=== PATIENT | female | born 1940 | race Caucasian/White ===

== ENCOUNTER 2020-12-02 16:31 | Inpatient (IN) | payer MEDICARE ==
--- NOTE | 2020-12-02 17:15 | ED ---
General Adult HPI - General Chief complaint: Shortness of Breath Stated complaint: SOB Time Seen by Provider: 12/02/20 16:36 Source: patient, EMS, RN notes reviewed, old records reviewed Mode of arrival: EMS Limitations: no limitations - History of Present Illness Initial comments: 80-year-old female presented for evaluation of dyspnea and cough. History of COPD on oxygen at home. She's had multiple recent admissions at outside hospital with COPD exacerbation as well as atrial fibrillation. She states she's had some low-grade fevers, cough which is nonproductive. She denies abdominal pain but has had some nausea. No central chest pain. Patient was given Solu-Medrol, albuterol, Atrovent by EMS prior to arrival. - Related Data Home Medications Medication Instructions Recorded Confirmed ARIPiprazole [Abilify] 5 mg PO DAILY 12/02/20 12/02/20 Apixaban [Eliquis] 2.5 mg PO BID 12/02/20 12/02/20 Benazepril HCl [Lotensin] 20 mg PO DAILY 12/02/20 12/02/20 Cefuroxime Axetil [Ceftin] 500 mg PO BID 12/02/20 12/02/20 Diltiazem Oral [Cardizem Oral] 30 mg PO BID 12/02/20 12/02/20 Fluticasone Propion/Salmeterol 1 puff INHALATION RT-BID 12/02/20 12/02/20 [Wixela 500-50 Inhub] LORazepam [Ativan] 0.5 mg PO BID PRN 12/02/20 12/02/20 LORazepam [Ativan] 0.5 mg PO HS 12/02/20 12/02/20 Propranolol HCl [Inderal LA] 120 mg PO BID 12/02/20 12/02/20 Sertraline HCl [Zoloft] 150 mg PO DAILY 12/02/20 12/02/20 Simvastatin [Zocor] 20 mg PO HS 12/02/20 12/02/20 hydrALAZINE HCL 50 mg PO BID 12/02/20 12/02/20 hydroCHLOROthiazide 25 mg PO DAILY 12/02/20 12/02/20 Allergies Allergy/AdvReac Type Severity Reaction Status Date / Time No Known Allergies Allergy Unverified 12/02/20 17:59 Review of Systems ROS Statement: Those systems with pertinent positive or pertinent negative responses have been documented in the HPI. ROS Other: All systems not noted in ROS Statement are negative. Past Medical History Past Medical History: Atrial Fibrillation, COPD, Hypertension History of Any Multi-Drug Resistant Organisms: Unobtainable Past Surgical History: Orthopedic Surgery Additional Past Surgical History / Comment(s): left kindey, adrenal gland, lumpectomy left breast, catracts. Past Psychological History: No Psychological Hx Reported Smoking Status: Former smoker Past Alcohol Use History: None Reported Past Drug Use History: None Reported General Exam Limitations: no limitations General appearance: alert, in no apparent distress Head exam: Present: atraumatic, normocephalic Eye exam: Present: normal appearance, PERRL ENT exam: Present: normal exam Neck exam: Present: normal inspection. Absent: tenderness Respiratory exam: Present: respiratory distress, wheezes, rales, decreased breath sounds Cardiovascular Exam: Present: regular rate, irregular rhythm GI/Abdominal exam: Present: soft. Absent: distended, tenderness, guarding, rebound Extremities exam: Present: normal inspection, normal capillary refill. Absent: pedal edema, calf tenderness Neurological exam: Present: alert, oriented X3, CN II-XII intact. Absent: motor sensory deficit Psychiatric exam: Present: normal affect, normal mood Skin exam: Present: warm, dry, intact. Absent: cyanosis, diaphoretic Course Vital Signs 12/02/20 12/02/20 16:33 18:07 Temperature 98.4 F Pulse Rate 87 89 Respiratory 18 18 Rate Blood Pressure 87/58 93/62 O2 Sat by Pulse 96 95 Oximetry EKG Findings - EKG Comments: EKG Findings:: Atrial fibrillation, rate of 83 low voltage QRS, rate of 83, QRS duration 70, QTC 397, no ST segment elevation. Medical Decision Making - Medical Decision Making 80-year-old female presenting with cough and dyspnea. History of COPD, oxygen dependent. Chest x-ray showed bilateral effusion, concern for infiltrate. The patient does have a leukocytosis which may be secondary infection or recent steroid administration. She had a given steroids by EMS prior to arrival. She is given IV antibiotics in the emergency department for possible concurrent pneumonia. She has a stable hemoglobin. Normal light was, normal kidney function. She has a mild elevated BNP of 5000. Coronavirus is negative. I did discuss case with Dr. Gibson who will admit. Pulmonology placed on consult. - Lab Data Result diagrams: 12/02/20 17:21 12/02/20 17:21 Lab Results 12/02/20 12/02/20 12/02/20 Range/Units 17:21 17:21 17:21 WBC 18.0 H (3.8-10.6) k/uL RBC 4.04 (3.80-5.40) m/uL Hgb 13.0 (11.4-16.0) gm/dL Hct 40.1 (34.0-46.0) % MCV 99.3 (80.0-100.0) fL MCH 32.2 (25.0-35.0) pg MCHC 32.4 (31.0-37.0) g/dL RDW 14.6 (11.5-15.5) % Plt Count 375 (150-450) k/uL MPV 7.9 Neutrophils % 93 % Lymphocytes % 1 % Monocytes % 2 % Eosinophils % 3 % Basophils % 0 % Neutrophils # 16.8 H (1.3-7.7) k/uL Lymphocytes # 0.2 L (1.0-4.8) k/uL Monocytes # 0.3 (0-1.0) k/uL Eosinophils # 0.6 (0-0.7) k/uL Basophils # 0.1 (0-0.2) k/uL Macrocytosis Slight PT 11.3 (9.0-12.0) sec INR 1.1 (<1.2) APTT 24.0 (22.0-30.0) sec Sodium 136 L (137-145) mmol/L Potassium 3.7 (3.5-5.1) mmol/L Chloride 102 (98-107) mmol/L Carbon Dioxide 25 (22-30) mmol/L Anion Gap 9 mmol/L BUN 25 H (7-17) mg/dL Creatinine 0.80 (0.52-1.04) mg/dL Est GFR (CKD-EPI)AfAm 82 (>60 ml/min/1.73 sqM) Est GFR (CKD-EPI)NonAf 71 (>60 ml/min/1.73 sqM) Glucose 83 (74-99) mg/dL Plasma Lactic Acid Federico (0.7-2.0) mmol/L Calcium 11.2 H (8.4-10.2) mg/dL Magnesium 1.7 (1.6-2.3) mg/dL Total Bilirubin 1.1 (0.2-1.3) mg/dL AST 44 H (14-36) U/L ALT 71 H (4-34) U/L Alkaline Phosphatase 187 H (38-126) U/L Troponin I (0.000-0.034) ng/mL NT-Pro-B Natriuret Pep pg/mL Total Protein 5.7 L (6.3-8.2) g/dL Albumin 3.1 L (3.5-5.0) g/dL Coronavirus (PCR) (Not Detectd) 12/02/20 12/02/20 12/02/20 Range/Units 17:21 17:21 17:21 WBC (3.8-10.6) k/uL RBC (3.80-5.40) m/uL Hgb (11.4-16.0) gm/dL Hct (34.0-46.0) % MCV (80.0-100.0) fL MCH (25.0-35.0) pg MCHC (31.0-37.0) g/dL RDW (11.5-15.5) % Plt Count (150-450) k/uL MPV Neutrophils % % Lymphocytes % % Monocytes % % Eosinophils % % Basophils % % Neutrophils # (1.3-7.7) k/uL Lymphocytes # (1.0-4.8) k/uL Monocytes # (0-1.0) k/uL Eosinophils # (0-0.7) k/uL Basophils # (0-0.2) k/uL Macrocytosis PT (9.0-12.0) sec INR (<1.2) APTT (22.0-30.0) sec Sodium (137-145) mmol/L Potassium (3.5-5.1) mmol/L Chloride (98-107) mmol/L Carbon Dioxide (22-30) mmol/L Anion Gap mmol/L BUN (7-17) mg/dL Creatinine (0.52-1.04) mg/dL Est GFR (CKD-EPI)AfAm (>60 ml/min/1.73 sqM) Est GFR (CKD-EPI)NonAf (>60 ml/min/1.73 sqM) Glucose (74-99) mg/dL Plasma Lactic Acid Federico 1.1 (0.7-2.0) mmol/L Calcium (8.4-10.2) mg/dL Magnesium (1.6-2.3) mg/dL Total Bilirubin (0.2-1.3) mg/dL AST (14-36) U/L ALT (4-34) U/L Alkaline Phosphatase (38-126) U/L Troponin I <0.012 (0.000-0.034) ng/mL NT-Pro-B Natriuret Pep 5170 pg/mL Total Protein (6.3-8.2) g/dL Albumin (3.5-5.0) g/dL Coronavirus (PCR) (Not Detectd) 12/02/20 Range/Units 17:53 WBC (3.8-10.6) k/uL RBC (3.80-5.40) m/uL Hgb (11.4-16.0) gm/dL Hct (34.0-46.0) % MCV (80.0-100.0) fL MCH (25.0-35.0) pg MCHC (31.0-37.0) g/dL RDW (11.5-15.5) % Plt Count (150-450) k/uL MPV Neutrophils % % Lymphocytes % % Monocytes % % Eosinophils % % Basophils % % Neutrophils # (1.3-7.7) k/uL Lymphocytes # (1.0-4.8) k/uL Monocytes # (0-1.0) k/uL Eosinophils # (0-0.7) k/uL Basophils # (0-0.2) k/uL Macrocytosis PT (9.0-12.0) sec INR (<1.2) APTT (22.0-30.0) sec Sodium (137-145) mmol/L Potassium (3.5-5.1) mmol/L Chloride (98-107) mmol/L Carbon Dioxide (22-30) mmol/L Anion Gap mmol/L BUN (7-17) mg/dL Creatinine (0.52-1.04) mg/dL Est GFR (CKD-EPI)AfAm (>60 ml/min/1.73 sqM) Est GFR (CKD-EPI)NonAf (>60 ml/min/1.73 sqM) Glucose (74-99) mg/dL Plasma Lactic Acid Federico (0.7-2.0) mmol/L Calcium (8.4-10.2) mg/dL Magnesium (1.6-2.3) mg/dL Total Bilirubin (0.2-1.3) mg/dL AST (14-36) U/L ALT (4-34) U/L Alkaline Phosphatase (38-126) U/L Troponin I (0.000-0.034) ng/mL NT-Pro-B Natriuret Pep pg/mL Total Protein (6.3-8.2) g/dL Albumin (3.5-5.0) g/dL Coronavirus (PCR) Not Detected (Not Detectd) Disposition Clinical Impression: Acute exacerbation of chronic obstructive pulmonary disease, Pneumonia Disposition: ADMITTED IP TO THIS [facility] Condition: Stable Is patient prescribed a controlled substance at d/c from ED?: No Referrals: Keltno Palma MD [Primary Care Provider] - 1-2 days Decision to Admit Reason: Admit from EC Decision Date: 12/02/20 Decision Time: 19:05
[2020-12-02 17:35] LABS: Basophils # (A) 0.1 k/uL (0-0.2); Basophils % (A) 0 %; Eosinophils # (A) 0.6 k/uL (0-0.7); Eosinophils % (A) 3 %; HCT 40.1 % (34.0-46.0); Lymphocytes # (A) 0.2 k/uL (1.0-4.8); Lymphocytes % (A) 1 %; MCH 32.2 pg (25.0-35.0); MCHC 32.4 g/dL (31.0-37.0); MCV 99.3 fL (80.0-100.0); Macrocytosis Slight; Mean Platelet Volume 7.9; Monocytes # (A) 0.3 k/uL (0-1.0); Monocytes % (A) 2 %; Neutrophils # (A) 16.8 k/uL (1.3-7.7); Neutrophils % (A) 93 %; Platelet Count 375 k/uL (150-450); RBC 4.04 m/uL (3.80-5.40); RDW 14.6 % (11.5-15.5)
[2020-12-02 17:43] LABS: INR 1.1 (<1.2); Prothrombin Time 11.3 sec (9.0-12.0)
[2020-12-02 17:46] LABS: Albumin 3.1 g/dL (3.5-5.0); Calcium 11.2 mg/dL (8.4-10.2); Magnesium 1.7 mg/dL (1.6-2.3); Potassium 3.7 mmol/L (3.5-5.1); Total Bilirubin 1.1 mg/dL (0.2-1.3); Total Protein 5.7 g/dL (6.3-8.2)
--- NOTE | 2020-12-02 18:42 | XR ---
EXAMINATION TYPE: XR chest 2V DATE OF EXAM: 12/02/2020 COMPARISON: 01/13/2019. HISTORY: Shortness of breath. TECHNIQUE: Frontal and lateral views of the chest are obtained. FINDINGS: There are moderate bibasilar streaky opacities with small pleural effusions. There is sugg estion of mild interstitial edema. No pneumothorax seen. Recommend of the. The osseous structures a re intact. IMPRESSION: Bibasilar opacities with small pleural effusions, probably atelectasis. Infiltrate is no t excluded.
[2020-12-02] MEDS ORDERED: IPRATROPIUM-ALBUTEROL 3 ML NEB INHALATION PRN (19:01)
[2020-12-02] MEDS ORDERED: AZITHROMYCIN 500 MG in SODIUM CHLORIDE 0.9% 250 ML IVPB STA (19:02)
[2020-12-02] MEDS ORDERED: cefTRIAXone IN SWFI 1,000 MG/10 ML SYRINGE IVP STA (19:02)
[2020-12-02] MEDS: IPRATROPIUM-ALBUTEROL 3 ML NEB INHALATION SCH (19:51)
[2020-12-02] MEDS ORDERED: LORazepam 0.5 MG TAB PO PRN (22:25)
[2020-12-02] MEDS: LORazepam 0.5 MG TAB PO SCH (23:06)
[2020-12-02] MEDS: DILTIAZEM ORAL 30 MG TAB PO SCH (23:07)
[2020-12-02] MEDS: APIXABAN 2.5 MG TABLET PO SCH (23:09)
[2020-12-02] MEDS: methylPREDNISolone SOD SUCCI 125 MG/2 ML VIAL IV SCH (23:36)
[2020-12-03] MEDS: methylPREDNISolone SOD SUCCI 125 MG/2 ML VIAL IV SCH ×2 (05:30→11:16)
[2020-12-03] MEDS: IPRATROPIUM-ALBUTEROL 3 ML NEB INHALATION SCH ×5 (07:47→19:42)
[2020-12-03] MEDS ORDERED: FLUTICASONE PROPION INHALATION SCH (08:00)
[2020-12-03] MEDS ORDERED: SALMETEROL INHALATION SCH (08:00)
[2020-12-03] MEDS: ARIPiprazole 5 MG TAB PO SCH (08:36)
[2020-12-03] MEDS: hydrALAZINE HCL 50 MG TAB PO SCH ×2 (08:36→21:16)
[2020-12-03] MEDS: DILTIAZEM ORAL 30 MG TAB PO SCH ×2 (08:36→21:16)
[2020-12-03] MEDS: APIXABAN 2.5 MG TABLET PO SCH ×2 (08:36→21:16)
[2020-12-03] MEDS: PROPRANOLOL LA 60 MG CAP.SA.24H PO SCH ×2 (08:36→21:16)
[2020-12-03] MEDS: CEFDINIR 300 MG CAP PO SCH ×2 (08:36→21:16)
[2020-12-03] MEDS: SERTRALINE 100 MG TAB PO SCH (08:36)
[2020-12-03] MEDS: lisinopriL 20 MG TAB PO SCH (08:37)
[2020-12-03] MEDS ORDERED: hydroCHLOROthiazide 25 MG TAB PO SCH (09:00)
[2020-12-03] MEDS ORDERED: BUDESONIDE 1 MG/2 ML NEBU INHALATION SCH (11:51)
[2020-12-03] MEDS: guaiFENesin 600 MG TABLET.ER PO SCH ×3 (12:38→21:16)
--- NOTE | 2020-12-03 14:48 | P.CNPUL ---
History of Present Illness Consult date: 12/03/20 Requesting physician: Kain Gibson Reason for consult: dyspnea, COPD, hypoxemia, other Chief complaint: Shortness of breath, nausea, vomiting. History of present illness: This is a 80-year-old female with history of COPD from previous heavy tobacco use, who sees Dr. May Marie is a primary. She also sees my partner, for her COPD. The patient has been recently admitted to [facility] twice, in the last couple weeks. On the first admission, she came in with COPD exacerbation, CHF, atrial fibrillation with RVR, and a urinary tract infection secondary to E. coli. On a subsequent admission, she came in again with shortness of breath, thought to be mostly related to underlying COPD. She does have chronic hypoxemic respiratory failure, and uses home O2 between 3-4 L/m, 2 01/15. On the ER ant here, he states that the reason she came in was for shortness of breath although when we are in the room seeing her, she states that her bigger problem was nausea, vomiting, and vomiting up bile. She denied any chest pain or chest discomfort. There is no fever or chills. She wasn't complaining of any genitourinary issues. Also, there are no GI issues other than what I mentioned above. I did ask the nurse taking care of her order an ultrasound of the abdomen with special attention to the right upper quadrant. The patient clinically looks about the same as she did when she was at the other hospitals. I believe she's pretty much at her baseline. She does have a hist ory of COPD, hyperlipidemia, hypertension, recent episode of atrial fibrillation, E. coli urinary tract infection, and left hypernephroma, status post left nephrectomy, adrenalectomy, and splenectomy. The patient also has a prior history of breast cancer, and had a left breast lumpectomy. Finally, she does have a history of cataracts. Review of Systems REVIEW OF SYSTEMS: CONSTITUTIONAL: Weakness, with chills and shakes. NEUROLOGIC: [ Negative.] HEENT: [ Negative.] CARDIAC: [Negative.] PULMONARY: Chronic shortness of breath. GI: Nausea, and biliary emesis : [Negative.] RHEUMATOLOGIC: [ Negative.] IMMUNOLOGIC: [ Negative.] ENDOCRINE: [Negative. ] DERMATOLOGIC: [Negative.] Past Medical History Past Medical History: Atrial Fibrillation, COPD, Hypertension History of Any Multi-Drug Resistant Organisms: Unobtainable Past Surgical History: Orthopedic Surgery Additional Past Surgical History / Comment(s): left kindey, adrenal gland, lumpe ctomy left breast, catracts. Past Psychological History: No Psychological Hx Reported Smoking Status: Former smoker Past Alcohol Use History: Daily Past Drug Use History: None Reported Medications and Allergies Home Medications Medication Instructions Recorded Confirmed Type ARIPiprazole [Abilify] 5 mg PO DAILY 12/02/20 12/02/20 History Apixaban [Eliquis] 2.5 mg PO BID 12/02/20 12/02/20 History Benazepril HCl [Lotensin] 20 mg PO DAILY 12/02/20 12/02/20 History Cefuroxime Axetil [Ceftin] 500 mg PO BID 12/02/20 12/02/20 History Diltiazem Oral [Cardizem Oral] 30 mg PO BID 12/02/20 12/02/20 History Fluticasone Propion/Salmeterol 1 puff INHALATION RT-BID 12/02/20 12/02/20 History [Wixela 500-50 Inhub] LORazepam [Ativan] 0.5 mg PO BID PRN 12/02/20 12/02/20 History LORazepam [Ativan] 0.5 mg PO HS 12/02/20 12/02/20 History Propranolol HCl [Inderal LA] 120 mg PO BID 12/02/20 12/02/20 History Sertraline HCl [Zoloft] 150 mg PO DAILY 12/02/20 12/02/20 History Simvastatin [Zocor] 20 mg PO HS 12/02/20 12/02/20 History hydrALAZINE HCL 50 mg PO BID 12/02/20 12/02/20 History hydroCHLOROthiazide 25 mg PO DAILY 12/02/20 12/02/20 History Allergies Allergy/AdvReac Type Severity Reaction Status Date / Time No Known Allergies Allergy Unverified 12/02/20 17:59 Physical Exam Osteopathic Statement: *. No significant issues noted on an osteopathic structural exam other than those noted in the History and Physical/Consult. Vitals: Vital Signs Temp Pulse Pulse Resp BP BP Pulse Ox 12/03/20 11:23 80 12/03/20 11:13 77 12/03/20 08:00 85 12/03/20 07:48 83 98 12/03/20 07:45 98.1 F 85 14 144/93 98 12/03/20 02:39 97.5 F L 72 137/87 96 12/02/20 22:09 97.9 F 77 18 118/78 97 12/02/20 19:58 99 12/02/20 19:51 82 12/02/20 19:49 85 18 127/84 96 12/02/20 18:07 89 18 93/62 95 12/02/20 16:33 98.4 F 87 18 87/58 96 Intake and Output 12/02/20 12/03/20 12/03/20 22:59 06:59 14:59 Output Total 620 Balance -620 Output: Urine 620 Other: # Voids 1 Weight 86.183 kg 86.183 kg No acute distress, oriented 3. No respiratory distress, audible wheezing, use of accessory muscles, or conversational dyspnea. HEENT examination is grossly unremarkable. Mucous membranes are moist. No oral lesions. Nasal O2 in place. Neck supple. Full range of motion. No adenopathy thyromegaly or neck vein distention. Cardiovascular examination reveals irregular rhythm and rate. S1-S2 normal. No S3 or S4. A soft systolic murmur is noted. Heart rate 80 bpm. Lungs reveal mostly clear breath sounds. Her sounds are equal bilaterally. Minimal crackles at the bases. No rhonchi or wheezes. Breath sounds are diminished throughout. Abdomen soft bowel sounds are heard. No masses or tenderness. Extremities are intact. No cyanosis clubbing or edema. Skin is without rash or lesion. Neurologic examination is brief but nonfocal. Results - Laboratory Findings CBC and BMP: 12/02/20 17:21 12/02/20 17:21 PT/INR, D-dimer PT 11.3 sec (9.0-12.0) 12/02/20 17:21 INR 1.1 (<1.2) 12/02/20 17:21 Abnormal lab findings: Abnormal Labs 12/02/20 12/02/20 17:21 17:21 WBC 18.0 H Neutrophils # 16.8 H Lymphocytes # 0.2 L Sodium 136 L BUN 25 H Calcium 11.2 H AST 44 H ALT 71 H Alkaline Phosphatase 187 H Total Protein 5.7 L Albumin 3.1 L - Diagnostic Findings Chest x-ray: image reviewed Assessment and Plan Assessment: Chronic shortness of breath, pretty much at baseline, likely related to underlying COPD, and mild fluid overload. Recent admissions 2 at [facility], for COPD exacerbation, CHF exacerbation, atrial fibrillation with RVR, and E. coli urinary tract infection. Chronic hypoxemic respiratory failure, currently on home O2 at 3 L/m, 24/7. Previous history of heavy tobacco use. History of breast cancer, status post left lumpectomy. Hypernephroma, left kidney, status post left nephrectomy, left adrenalectomy, an d splenectomy. History of hypertension. History of hyperlipidemia. Nausea, with biliary emesis, rule out gallbladder disease. Plan: Plan dated 12/03/2020. The patient will get an ultrasound of the abdomen with special attention to the right upper quadrant. The patient should have urine analysis with culture and sensitivity. In addition, we'll make sure the patient's on her appropriate breathing medications. White count is 18, hemoglobin 13, hematocrit 40.1, plat elet count 375,000, with a normal PT INR and PTT. Sodium 136, potassium 3.7, chlorides 102, CO2 25, anion gap is 9, BUN 25, and creatinine 0.80. Calcium is 11.2, AST 44, ALT 71, N-terminal proBNP 5170, and troponin is negative. coronavirus testing is negative. The patient will be placed on Symbicort, 160/4.5, 2 puffs twice a day, and we will DC Solu-Medrol in favor prednisone, 20 mg a day. The patient's currently on antibiotics. Additional recommendations and suggestions are forthcoming. I will order a pro-calcitonin level, and an ultrasound of the right upper quadrant. Time with Patient: Greater than 30
--- NOTE | 2020-12-03 15:57 | US ---
EXAMINATION TYPE: US abdomen limited DATE OF EXAM: 12/03/2020 COMPARISON: NONE CLINICAL HISTORY: Focus RUQ, R/O gallbladder disease . Difficult and limited exam due to patient body habitus EXAM MEASUREMENTS: Liver Length: 13.8 cm Gallbladder Wall: 0.2 cm CBD: 0.4 cm Right Kidney: 9.5 x 5.7 x 5.2 cm Pancreas: Obscured by bowel gas Liver: Heterogenous Gallbladder: No stones visualized. Appears slightly distended Evidence for sonographic Hendricks's sign: No CBD: wnl Right Kidney: No hydronephrosis. Possible tiny cyst visualized measuring 0.5 cm Visualized pancreas unremarkable. Visualized liver shows slight heterogeneity without worrisome mass or ductal dilatation. Gallbladder seen without shadowing mobile gallstones. No biliary dilatation. No right-sided hydronephrosis. IMPRESSION: No gallstones or ultrasound evidence for acute cholecystitis
[2020-12-03] MEDS ORDERED: methylPREDNISolone SOD SUCCI 40 MG/ML 1 ML VIAL IV SCH (16:00)
[2020-12-03] MEDS: SYMBICORT 160-4.5 MCG INHALER INHALATION SCH (19:41)
--- NOTE | 2020-12-03 20:32 | P.HPIM ---
History of Present Illness H&P Date: 12/03/20 Chief Complaint: Shortness of breath History of presenting complaint: This is a pleasant 80-year-old patient follows with Dr. Palma. Chronic stable medical conditions include hypertension, atrial fibrillation, anxiety, hypercholesterolemia essential hypertension. Patient on home oxygen 3 L. Patient for about 2 weeks of gradually becoming more and more short of breath. She had presented to [facility] at least couple of times. First occasion she was discovered to have atrial fibrillation. Also COPD has been playing a. Patient also got a cough with yellow sputum. Some fever. Appetite had dental. Wheezing. Patient's heart of hearing. Review of systems: GEN.: Tired EYES: None HEENT: Hard of hearing NECK: None RESPIRATORY: As above CARDIOVASCULAR: None GASTROINTESTINAL: None GENITOURINARY: None MUSCULOSKELETAL: Joint pains LYMPHATICS: None HEMATOLOGICAL: None PSYCHIATRY: None NEUROLOGICAL: Does use a walker Past medical history to include: COPD, home oxygen 3 dose, hyperlipidemia, depression, anxiety, essential hypertension Social history: Lives with her adult son. Does use a walker. Patient ex-smoker Physical examination: VITAL SIGNS: 98.4, 97, 18, 93/62, 96% on 3 L GENERAL: BMI 42.6, reclining on a recliner tired. EYES: Pupils equal. Conjunctiva normal. HEENT: External appearance of nose and ears normal, oral cavity grossly normal. Heart of hearing NECK: JVD not raised; masses not palpable. HEART: First and second heart sounds are normal; no edema. LUNGS:[ Respiratory rate increased, decreased breath sounds prolonged expi ration. ABDOMEN: Soft, nontender, liver spleen not palpable, no masses palpable. 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 NEUROLOGICAL: Cranial nerves grossly intact; no facial asymmetry, power and sensation grossly intact. LYMPHATICS: No lymph nodes palpable in the axilla and neck INVESTIGATIONS, reviewed in the clinical context: White count 18 hemoglobin 13 platelets 375 potassium 3.7 creatinine 0.8 AST 44 ALT 71 proBNP 5170 Coronavirus [PCR]-not detected EKG tracing personally reviewed by me-atrial fibrillation rate of 83 Chest x-ray film personally reviewed by me-right basilar infiltrate Assessment and plan: -Acute COPD exacerbation in an ex-smoker. Patient is placed on DuoNeb, steroid, Symbicort. Pulmonary consulted -Right lower lobe pneumonia, will be started antibiotics -Essential hypertension, patient continued on Cardizem, hydralazine, Zestril, Inderal LA -Persistent atrial fibrillation, heart rate controlled with Cardizem and Inderal LA. Also on eliquis -Anxiety depression on Zoloft -Possible acute CHF exacerbation. Give the patient IV Lasix every 12. 2 2-D echocardiogram the morning -Hard of hearing -Chronic hypoxic respiratory failure on home oxygen 3 L. Check pro-calcitonin and repeat BMP and BNP in the morning. Care was discussed with the patient. Past Medical History Past Medical History: Atrial Fibrillation, COPD, Hypertension History of Any Multi-Drug Resistant Organisms: Unobtainable Past Surgical History: Orthopedic Surgery Additional Past Surgical History / Comment(s): left kindey, adrenal gland, lumpectomy left breast, catracts. Past Psychological History: No Psychological Hx Reported Smoking Status: Former smoker Past Alcohol Use History: Daily Past Drug Use History: None Reported Medications and Allergies Home Medications Medication Instructions Recorded Confirmed Type ARIPiprazole [Abilify] 5 mg PO DAILY 12/02/20 12/02/20 History Apixaban [Eliquis] 2.5 mg PO BID 12/02/20 12/02/20 History Benazepril HCl [Lotensin] 20 mg PO DAILY 12/02/20 12/02/20 History Cefuroxime Axetil [Ceftin] 500 mg PO BID 12/02/20 12/02/20 History Diltiazem Oral [Cardizem Oral] 30 mg PO BID 12/02/20 12/02/20 History Fluticasone Propion/Salmeterol 1 puff INHALATION RT-BID 12/02/20 12/02/20 History [Wixela 500-50 Inhub] LORazepam [Ativan] 0.5 mg PO BID PRN 12/02/20 12/02/20 History LORazepam [Ativan] 0.5 mg PO HS 12/02/20 12/02/20 History Propranolol HCl [Inderal LA] 120 mg PO BID 12/02/20 12/02/20 History Sertraline HCl [Zoloft] 150 mg PO DAILY 12/02/20 12/02/20 History Simvastatin [Zocor] 20 mg PO HS 12/02/20 12/02/20 History hydrALAZINE HCL 50 mg PO BID 12/02/20 12/02/20 History hydroCHLOROthiazide 25 mg PO DAILY 12/02/20 12/02/20 History Allergies Allergy/AdvReac Type Severity Reaction Status Date / Time No Known Allergies Allergy Unverified 12/02/20 17:59 Physical Exam Vitals: Vital Signs Temp Pulse Pulse Resp BP BP Pulse Ox 12/03/20 08:00 85 12/03/20 07:48 83 98 12/03/20 07:45 98.1 F 85 14 144/93 98 12/03/20 02:39 97.5 F L 72 137/87 96 12/02/20 22:09 97.9 F 77 18 118/78 97 12/02/20 19:58 99 12/02/20 19:51 82 12/02/20 19:49 85 18 127/84 96 12/02/20 18:07 89 18 93/62 95 12/02/20 16:33 98.4 F 87 18 87/58 96 Intake and Output 12/02/20 12/03/20 12/03/20 22:59 06:59 14:59 Output Total 620 Balance -620 Output: Urine 620 Other: # Voids 1 Weight 86.183 kg 86.183 kg Results CBC & Chem 7: 12/02/20 17:21 12/02/20 17:21 Labs: Abnormal Lab Results - Last 24 Hours (Table) 12/02/20 12/02/20 Range/Units 17:21 17:21 WBC 18.0 H (3.8-10.6) k/uL Neutrophils # 16.8 H (1.3-7.7) k/uL Lymphocytes # 0.2 L (1.0-4.8) k/uL Sodium 136 L (137-145) mmol/L BUN 25 H (7-17) mg/dL Calcium 11.2 H (8.4-10.2) mg/dL AST 44 H (14-36) U/L ALT 71 H (4-34) U/L Alkaline Phosphatase 187 H (38-126) U/L Total Protein 5.7 L (6.3-8.2) g/dL Albumin 3.1 L (3.5-5.0) g/dL Thrombosis Risk Factor Assmnt - Choose All That Apply Any of the Below Risk Factors Present?: Yes Each Factor Represents 1 point: Abnormal pulmonary function (COPD) Each Risk Factor Represents 3 Points: Age 75 years or older Thrombosis Risk Factor Assessment Total Risk Factor Score: 4 Thrombosis Risk Factor Assessment Level: Moderate Risk
[2020-12-03] MEDS: LORazepam 0.5 MG TAB PO SCH (21:16)
[2020-12-03] MEDS: FUROSEMIDE 10 MG/ML 4 ML VIAL IV SCH (21:16)
[2020-12-03] MEDS: ATORVASTATIN 10 MG TAB PO SCH (21:16)
[2020-12-04] MEDS: IPRATROPIUM-ALBUTEROL 3 ML NEB INHALATION SCH ×6 (00:50→20:18)
[2020-12-04 06:03] LABS: African American GFR (CKD) 61 (>60 ml/min/1.73 sqM); Anion Gap 7 mmol/L; Blood Urea Nitrogen 35 mg/dL (7-17); Calcium 11.3 mg/dL (8.4-10.2); Carbon Dioxide 31 mmol/L (22-30); Chloride 97 mmol/L (98-107); Glucose 139 mg/dL (74-99); Non-African American GFR(CKD) 53 (>60 ml/min/1.73 sqM); Potassium 3.5 mmol/L (3.5-5.1); Sodium 135 mmol/L (137-145)
[2020-12-04] MEDS: SYMBICORT 160-4.5 MCG INHALER INHALATION SCH ×2 (07:30→20:18)
[2020-12-04] MEDS: guaiFENesin 600 MG TABLET.ER PO SCH ×4 (08:49→22:38)
[2020-12-04] MEDS: FUROSEMIDE 10 MG/ML 4 ML VIAL IV SCH (08:49)
[2020-12-04] MEDS: SERTRALINE 100 MG TAB PO SCH (08:49)
[2020-12-04] MEDS: CEFDINIR 300 MG CAP PO SCH ×2 (08:49→22:38)
[2020-12-04] MEDS: predniSONE 20 MG TAB PO SCH (08:49)
[2020-12-04] MEDS: APIXABAN 2.5 MG TABLET PO SCH ×2 (08:50→22:38)
[2020-12-04] MEDS: hydrALAZINE HCL 50 MG TAB PO SCH (08:50)
[2020-12-04] MEDS: lisinopriL 20 MG TAB PO SCH (08:50)
[2020-12-04] MEDS: PROPRANOLOL LA 60 MG CAP.SA.24H PO SCH (08:50)
[2020-12-04] MEDS: ARIPiprazole 5 MG TAB PO SCH (08:50)
[2020-12-04] MEDS: DILTIAZEM ORAL 30 MG TAB PO SCH ×2 (08:50→23:02)
--- NOTE | 2020-12-04 10:43 | ECHOF ---
Referral Reason:Possible CHF MEASUREMENTS -------- HEIGHT: 132.1 cm WEIGHT: 86.2 kg BP: RVIDd: 3.1 cm (< 3.3) IVSd: 1.4 cm (0.6 - 1.1) LVIDd: 4.8 cm (3.9 - 5.3) LVPWd: 1.6 cm (0.6 - 1.1) IVSs: 1.7 cm LVIDs: 2.1 cm LVPWs: 2.2 cm LAESV Index (A-L): 52.39 ml/m Ao Diam: 3.0 cm (2.0 - 3.7) AV Cusp: 1.9 cm (1.5 - 2.6) MV EXCURSION: 18.959 mm (> 18.000) MV EF SLOPE: 111 mm/s (70 - 150) EPSS: 0.7 cm MV E Martin: 0.77 m/s MV DecT: 147 ms MV A Martin: 0.20 m/s MV E/A Ratio: 3.85 RAP: 5.00 mmHg RVSP: 42.49 mmHg FINDINGS -------- Atrial fibrillation. This was a technically adequate study. The left ventricular size is normal. There is moderate concentric left ventricular hypertrophy. O verall left ventricular systolic function is low-normal with, an EF between 50 - 55 %. Basal anteri or LV wall motion is hypokinetic. The right ventricle is normal in size. LA is severely dilated >40 ml/m2 The right atrial size is normal. The aortic valve was not well visualized. Moderate mitral regurgitation is present. Mild tricuspid regurgitation present. There is mild pulmonary hypertension. The right ventricular systolic pressure, as measured by Doppler, is 42.49mmHg. Trace/mild (physiologic) pulmonic regurgitation. The aortic root size is normal. There is a small, generalized pericardial effusion present. CONCLUSIONS -------- 1. The left ventricular size is normal. 2. There is moderate concentric left ventricular hypertrophy. 3. Overall left ventricular systolic function is low-normal with, an EF between 50 - 55 %. 4. Basal anterior LV wall motion is hypokinetic. 5. The right ventricle is normal in size. 6. LA is severely dilated >40 ml/m2 7. The right atrial size is normal. 8. The aortic valve was not well visualized. 9. Moderate mitral regurgitation is present. 10. Mild tricuspid regurgitation present. 11. The right ventricular systolic pressure, as measured by Doppler, is 42.49mmHg. 12. Trace/mild (physiologic) pulmonic regurgitation. 13. The aortic root size is normal. 14. There is a small, generalized pericardial effusion present. ACID REGENERATOR: Svetlana Wilhelm RDCS
[2020-12-04 11:15] LABS: Appearance,Urine Clear (Clear); Bilirubin,Urine Negative (Negative); Blood,Urine Negative (Negative); Color,Urine Colorless; Glucose,Urine (UA) Negative (Negative); Ketones,Urine Negative (Negative); Leukocyte Esterase,Urine Negative (Negative); Nitrite,Urine Negative (Negative); Protein,Urine Negative (Negative); Specific Gravity,Urine 1.006 (1.001-1.035); Urobilinogen,Urine <2.0 mg/dL (<2.0)
--- NOTE | 2020-12-04 11:29 | P.PN ---
Subjective Progress Note Date: 12/04/20 Principal diagnosis: Acute exacerbation of chronic obstructive pulmonary disease This is a 80-year-old female with history of COPD from previous heavy tobacco use, who sees Dr. May Marie is a primary. She also sees my partner, for her COPD. The patient has been recently admitted to [facility] twice, in the last couple weeks. On the first admission, she came in with COPD exacerbation, CHF, atrial fibrillation with RVR, and a urinary tract infection secondary to E. coli. On a subsequent admission, she came in again with shortness of breath, thought to be mostly related to underlying COPD. She does have chronic hypoxemic respiratory failure, and uses home O2 between 3-4 L/m, 03/05. On the ER ant here, he states that the reason she came in was for sh ortness of breath although when we are in the room seeing her, she states that her bigger problem was nausea, vomiting, and vomiting up bile. She denied any chest pain or chest discomfort. There is no fever or chills. She wasn't complaining of any genitourinary issues. Also, there are no GI issues other than what I mentioned above. I did ask the nurse taking care of her order an ultrasound of the abdomen with special attention to the right upper quadrant. The patient clinically looks about the same as she did when she was at the other hospitals. I believe she's pretty much at her baseline. She does have a history of COPD, hyperlipidemia, hypertension, recent episode of atrial fibrill ation, E. coli urinary tract infection, and left hypernephroma, status post left nephrectomy, adrenalectomy, and splenectomy. The patient also has a prior history of breast cancer, and had a left breast lumpectomy. Finally, she does have a history of cataracts. The patient is seen today 12/04/2020 in follow-up on the regular medical floor. She is currently up in the shower. Breathing a bit easier today compared to yesterday. No worsening shortness of breath, cough or congestion. Maintaining O2 saturations in the mid 90s on 3 L/m per nasal cannula. She's afebrile. Hemodynamically stable. Sputum culture is pending. Urinalysis clean. Pro- calcitonin 11.81. Abdominal ultrasound negative for acute cholecystitis. ProBNP 6280. Sodium 135. Potassium 3.5. Creatinine 1.02. She is continued on DuoNeb inhalations, Symbicort, prednisone. She remains on IV diuretics. Anticoagulated with Eliquis. Objective - Vital Signs Vital signs: Vital Signs Temp 97.9 F 12/04/20 07:27 Pulse 76 12/04/20 11:18 Resp 14 12/04/20 07:27 BP 124/80 12/04/20 07:27 Pulse Ox 96 12/04/20 07:31 Intake & Output 12/03/20 12/04/20 12/04/20 18:59 06:59 18:59 Other: Voiding Method Toilet Toilet Incontinent # Voids 1 - Exam GENERAL EXAM: Alert, pleasant 80-year-old female patient, on 3 L nasal cannula comfortable in no apparent distress. HEAD: Normocephalic. EYES: Normal reaction of pupils, equal size. NOSE: Clear with pink turbinates. THROAT: No erythema or exudates. NECK: No masses, no JVD. CHEST: No chest wall deformity. LUNGS: Equal air entry with faint end expiratory wheeze, diminished. CVS: S1 and S2 normal with no audible murmur, regular rhythm. ABDOMEN: No hepatosplenomegaly, normal bowel sounds, no guarding or rigidity. SPINE: No scoliosis or deformity SKIN: No rashes CENTRAL NERVOUS SYSTEM: No focal deficits, tone is normal in all 4 extremities. EXTREMITIES: There is no peripheral edema. No clubbing, no cyanosis. Peripheral pulses are intact. - Labs CBC & Chem 7: 12/02/20 17:21 12/04/20 05:17 Labs: Abnormal Lab Results - Last 24 Hours (Table) 12/03/20 12/04/20 Range/Units 12:13 05:17 Sodium 135 L (137-145) mmol/L Chloride 97 L (98-107) mmol/L Carbon Dioxide 31 H (22-30) mmol/L BUN 35 H (7-17) mg/dL Glucose 139 H (74-99) mg/dL Calcium 11.3 H (8.4-10.2) mg/dL Procalcitonin 11.81 H (0.02-0.09) ng/mL Microbiology - Last 24 Hours (Table) 12/04/20 07:30 Sputum Culture - Preliminary Sputum Assessment and Plan Assessment: Acute exacerbation of chronic obstructive pulmonary disease, and mild fluid overload. Recent admissions 2 at [facility], for COPD exacerbation, CHF exacerbation, atrial fibrillation with RVR, and E. coli urinary tract infection. Acute on chronic hypoxemic respiratory failure, currently on home O2 at 3 L/m, 03/05. Previous history of heavy tobacco use. History of breast cancer, status post left lumpectomy. Hypernephroma, left kidney, status post left nephrectomy, left adrenalectomy, and splenectomy. History of hypertension. History of hyperlipidemia. Nausea, with biliary emesis, rule out gallbladder disease. Plan: The patient was seen and evaluated by Dr. Burnham Sputum culture pending Urinalysis clean Ultrasound negative for cholecystitis Continue with the current treatment plan for now Increase her activity as tolerated We'll continue to follow I, the cosigning physician, performed a history & physical examination of the patient. Lungs sounds with end expiratory wheeze, diminished. Maintaining good O2 saturations in the 90s on 3 L/m per nasal cannula. I discussed the assessment and plan of care with my nurse practitioner, Ashanti Singh. I attest to the above note as dictated by her.
[2020-12-04] MEDS: ATORVASTATIN 10 MG TAB PO SCH (22:38)
--- NOTE | 2020-12-04 22:42 | P.PN ---
Progress Note - Text Progress Note Date: 12/04/20 Chief Complaint: Shortness of breath History of presenting complaint: This is a pleasant 80-year-old patient follows with Dr. Palma. Chronic stable medical conditions include hypertension, atrial fibrillation, anxiety, hypercholesterolemia essential hypertension. Patient on home oxygen 3 L. Patient for about 2 weeks of gradually becoming more and more short of breath. She had presented to [facility] at least couple of times. First occasion she was discovered to have atrial fibrillation. Also COPD has been playing a. Patient also got a cough with yellow sputum. Some fever. Appetite had decreased Wheezing. Heart of hearing. Admitted with COPD exacerbation., Right lower pneumonia. Started on DuoNeb, Omnicef, bursts of steroids. Today-sitting up on the bed. Breathing better. Oral intake better. Review of systems: Was done for constitutional, cardiovascular, GI, pulmonary. relevant finding as above Active Medications Albuterol/Ipratropium (Ipratropium-Albuterol 3 Ml Neb) 3 ml INHALATION RT-Q4H PRN PRN Reason: Shortness Of Breath Or Wheezing Albuterol/Ipratropium (Ipratropium-Albuterol 3 Ml Neb) 3 ml INHALATION RT-Q4H [facility] Last Admin: 12/04/20 20:18 Dose: 3 ml Documented by: Apixaban (Apixaban 2.5 Mg Tablet) 2.5 mg PO BID [facility] Last Admin: 12/04/20 22:38 Dose: 2.5 mg Documented by: Aripiprazole (Aripiprazole 5 Mg Tab) 5 mg PO DAILY [facility] Last Admin: 12/04/20 08:50 Dose: 5 mg Documented by: Atorvastatin Calcium (Atorvastatin 10 Mg Tab) 10 mg PO HS [facility] Last Admin: 12/04/20 22:38 Dose: 10 mg Documented by: Budesonide/Formoterol Fumarate (Symbicort 160-4.5 Mcg Inhaler) 2 puff INHALATION RT-BID [facility] Last Admin: 12/04/20 20:18 Dose: 2 puff Documented by: Cefdinir (Cefdinir 300 Mg Cap) 300 mg PO BID [facility] Last Admin: 12/04/20 22:38 Dose: 300 mg Documented by: Diltiazem HCl (Diltiazem Oral 30 Mg Tab) 30 mg PO BID [facility] Last Admin: 12/04/20 08:50 Dose: 30 mg Documented by: Furosemide (Furosemide 10 Mg/Ml 4 Ml Vial) 40 mg IV Q12HR [facility] Last Admin: 12/04/20 08:49 Dose: 40 mg Documented by: Guaifenesin (Guaifenesin 600 Mg Tablet.Er) 600 mg PO QID [facility] Last Admin: 12/04/20 22:38 Dose: 600 mg Documented by: Hydralazine HCl (Hydralazine Hcl 50 Mg Tab) 50 mg PO BID [facility] Last Admin: 12/04/20 08:50 Dose: 50 mg Documented by: Lisinopril (Lisinopril 20 Mg Tab) 20 mg PO DAILY [facility] Last Admin: 12/04/20 08:50 Dose: 20 mg Documented by: Lorazepam (Lorazepam 0.5 Mg Tab) 0.5 mg PO BID PRN PRN Reason: Anxiety Lorazepam (Lorazepam 0.5 Mg Tab) 0.5 mg PO HS [facility] Last Admin: 12/03/20 21:16 Dose: 0.5 mg Documented by: Prednisone (Prednisone 20 Mg Tab) 20 mg PO DAILY [facility] Last Admin: 12/04/20 08:49 Dose: 20 mg Documented by: Propranolol HCl (Propranolol La 60 Mg Cap.Sa.24h) 120 mg PO BID [facility] Last Admin: 12/04/20 08:50 Dose: 120 mg Documented by: Sertraline HCl (Sertraline 100 Mg Tab) 150 mg PO DAILY [facility] Last Admin: 12/04/20 08:49 Dose: 150 mg Documented by: Past medical history to include: COPD, home oxygen 3 dose, hyperlipidemia, depression, anxiety, essential hypertension Social history: Lives with her adult son. Does use a walker. Patient ex-smoker Physical examination: VITAL SIGNS: 98, 75, 17, 96/64, 96% on 3 L GENERAL: BMI 42.6, reclining on a recliner tired. EYES: Pupils equal. Conjunctiva normal. HEENT: Heart of hearing NECK: JVD not raised; masses not palpable. HEART: First and second heart sounds are normal; no edema. LUNGS:[ Respiratory rate increased, decreased breath sounds ABDOMEN: Soft, nontender, liver spleen not palpable, no masses palpable. 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 INVESTIGATIONS, reviewed in the clinical context: December 04: Potassium 3.5 creatinine 1.02. Procalcitonin 11.8 White count 18 hemoglobin 13 platelets 375 potassium 3.7 creatinine 0.8 AST 44 ALT 71 proBNP 5170 Coronavirus [PCR]-not detected EKG tracing personally reviewed by me-atrial fibrillation rate of 83 Chest x-ray film personally reviewed by me-right basilar infiltrate 2-D echocardiogram-EF 50-55%. Basal anterior LV wall is hypokinetic. Moderate mitral regurgitation. Concentric LVH. Assessment and plan: -Acute COPD exacerbation in an ex-smoker. Patient is placed on DuoNeb, steroid, Symbicort. Pulmonary consulted-improving -Right lower lobe pneumonia, on Omnicef -Essential hypertension, patient continued on Cardizem, hydralazine, Zestril, Inderal LA -Persistent atrial fibrillation, heart rate controlled with Cardizem and Inderal LA. eliquis -Anxiety depression on Zoloft -Acute congestive heart failure exacerbation from diastolic dysfunction EF 50- 55% better. DC Lasix -Hard of hearing -Chronic hypoxic respiratory failure on home oxygen 3 L. Stop Lasix. Repeat BMP in the morning. Discussed with the patient. Doing better.
[2020-12-04] MEDS ORDERED: SODIUM CHLORIDE 0.9% 1,000 ML IV SCH (22:45)
[2020-12-05] MEDS: hydrALAZINE HCL 50 MG TAB PO SCH ×3 (00:09→20:40)
[2020-12-05] MEDS: LORazepam 0.5 MG TAB PO SCH ×2 (00:10→20:40)
[2020-12-05] MEDS: PROPRANOLOL LA 60 MG CAP.SA.24H PO SCH ×3 (00:10→20:40)
[2020-12-05] MEDS: IPRATROPIUM-ALBUTEROL 3 ML NEB INHALATION SCH ×6 (02:22→19:24)
[2020-12-05] MEDS: FUROSEMIDE 10 MG/ML 4 ML VIAL IV SCH (06:55)
[2020-12-05] MEDS: CEFDINIR 300 MG CAP PO SCH ×2 (08:31→20:45)
[2020-12-05] MEDS: APIXABAN 2.5 MG TABLET PO SCH ×2 (08:31→20:40)
[2020-12-05] MEDS: guaiFENesin 600 MG TABLET.ER PO SCH ×4 (08:32→20:40)
[2020-12-05] MEDS: SERTRALINE 100 MG TAB PO SCH (08:32)
[2020-12-05] MEDS: ARIPiprazole 5 MG TAB PO SCH (08:32)
[2020-12-05] MEDS: DILTIAZEM ORAL 30 MG TAB PO SCH ×2 (08:32→20:41)
[2020-12-05] MEDS: predniSONE 20 MG TAB PO SCH (08:33)
[2020-12-05] MEDS: SYMBICORT 160-4.5 MCG INHALER INHALATION SCH ×2 (11:37→19:24)
--- NOTE | 2020-12-05 13:05 | P.PN ---
Subjective Progress Note Date: 12/05/20 Principal diagnosis: Acute exacerbation of chronic obstructive pulmonary disease This is a 80-year-old female with history of COPD from previous heavy tobacco use, who sees Dr. May Marie is a primary. She also sees my partner, for her COPD. The patient has been recently admitted to [facility] twice, in the last couple weeks. On the first admission, she came in with COPD exacerbation, CHF, atrial fibrillation with RVR, and a urinary tract infection secondary to E. coli. On a subsequent admission, she came in again with shortness of breath, thought to be mostly related to underlying COPD. She does have chronic hypoxemic respiratory failure, and uses home O2 between 3-4 L/m, 03/05. On the ER ant here, he states that the reason she came in was for sh ortness of breath although when we are in the room seeing her, she states that her bigger problem was nausea, vomiting, and vomiting up bile. She denied any chest pain or chest discomfort. There is no fever or chills. She wasn't complaining of any genitourinary issues. Also, there are no GI issues other than what I mentioned above. I did ask the nurse taking care of her order an ultrasound of the abdomen with special attention to the right upper quadrant. The patient clinically looks about the same as she did when she was at the other hospitals. I believe she's pretty much at her baseline. She does have a history of COPD, hyperlipidemia, hypertension, recent episode of atrial fibrill ation, E. coli urinary tract infection, and left hypernephroma, status post left nephrectomy, adrenalectomy, and splenectomy. The patient also has a prior history of breast cancer, and had a left breast lumpectomy. Finally, she does have a history of cataracts. The patient is seen today 12/04/2020 in follow-up on the regular medical floor. She is currently up in the shower. Breathing a bit easier today compared to yesterday. No worsening shortness of breath, cough or congestion. Maintaining O2 saturations in the mid 90s on 3 L/m per nasal cannula. She's afebrile. Hemodynamically stable. Sputum culture is pending. Urinalysis clean. Pro- calcitonin 11.81. Abdominal ultrasound negative for acute cholecystitis. ProBNP 6280. Sodium 135. Potassium 3.5. Creatinine 1.02. She is continued on DuoNeb inhalations, Symbicort, prednisone. She remains on IV diuretics. Anticoagulated with Eliquis. The patient is seen today 12/05/2020 in follow-up on the regular medical floor. She is currently sitting up in a chair at bedside. Awake and alert in no acute distress. She is doing better today compared to yesterday. Her main complaint is that of fatigue and weakness. Short of breath with exertion. She is maintaining O2 saturations in the mid 90s on 3 L/m per nasal cannula. She's afebrile. Hemodynamically stable. Sputum culture pending. Currently on Omnicef. She is continued on DuoNeb inhalations, Symbicort, prednisone. She remains on IV diuretics. Anticoagulated with Eliquis. Objective - Vital Signs Vital signs: Vital Signs Temp 98.0 F 12/05/20 07:12 Pulse 72 12/05/20 11:51 Resp 18 12/05/20 07:12 BP 128/85 12/05/20 07:12 Pulse Ox 96 12/05/20 07:12 Intake & Output 12/04/20 12/05/20 12/05/20 18:59 06:59 18:59 Intake Total 1080 Balance 1080 Intake: Oral 1080 Other: Voiding Method Toilet Toilet # Voids 1 - Exam GENERAL EXAM: Alert, pleasant 80-year-old female patient, on 3 L nasal cannula comfortable in no apparent distress. HEAD: Normocephalic. EYES: Normal reaction of pupils, equal size. NOSE: Clear with pink turbinates. THROAT: No erythema or exudates. NECK: No masses, no JVD. CHEST: No chest wall deformity. LUNGS: Equal air entry with faint end expiratory wheeze, diminished. CVS: S1 and S2 normal with no audible murmur, regular rhythm. ABDOMEN: No hepatosplenomegaly, normal bowel sounds, no guarding or rigidity. SPINE: No scoliosis or deformity SKIN: No rashes CENTRAL NERVOUS SYSTEM: No focal deficits, tone is normal in all 4 extremities. EXTREMITIES: There is no peripheral edema. No clubbing, no cyanosis. Peripheral pulses are intact. - Labs CBC & Chem 7: 12/02/20 17:21 12/04/20 05:17 Labs: Microbiology - Last 24 Hours (Table) 12/04/20 07:30 Gram Stain - Preliminary Sputum Sputum Culture - Preliminary Assessment and Plan Assessment: 1 Acute exacerbation of chronic obstructive pulmonary disease, and mild fluid overload. 2 Recent admissions 2 at [facility], for COPD exacerbation, CHF exacerbation, atrial fibrillation with RVR, and E. coli urinary tract infection. 3 Acute on chronic hypoxemic respiratory failure, currently on home O2 at 3 L/m, 7. 4 Previous history of heavy tobacco use. 5 History of breast cancer, status post left lumpectomy. 6 Hypernephroma, left kidney, status post left nephrectomy, left adrenalectomy, and splenectomy. 7 History of hypertension. 8 History of hyperlipidemia. 9 Nausea, with biliary emesis, rule out gallbladder disease. Plan: The patient was seen and evaluated by Dr. Burnham Sputum culture pending currently on Omnicef Continue with the current treatment plan for now Increase her activity as tolerated Probable discharge in the a.m. May need subacute rehabilitation We'll continue to follow I, the cosigning physician, performed a history & physical examination of the patient. Lungs sounds with end expiratory wheeze, diminished. Maintaining good O2 saturations in the 90s on 3 L/m per nasal cannula. I discussed the assessment and plan of care with my nurse practitioner, Ashanti Singh. I attest to the above note as dictated by her.
[2020-12-05] MEDS: ATORVASTATIN 10 MG TAB PO SCH (20:40)
--- NOTE | 2020-12-05 22:53 | P.PN ---
Progress Note - Text Progress Note Date: 12/05/20 Chief Complaint: Shortness of breath History of presenting complaint: This is a pleasant 80-year-old patient follows with Dr. Palma. Chronic stable medical conditions include hypertension, atrial fibrillation, anxiety, hypercholesterolemia essential hypertension. Patient on home oxygen 3 L. Patient for about 2 weeks of gradually becoming more and more short of breath. She had presented to [facility] at least couple of times. First occasion she was discovered to have atrial fibrillation. Also COPD has been playing a. Patient also got a cough with yellow sputum. Some fever. Appetite had decreased Wheezing. Heart of hearing. Admitted with COPD exacerbation., Right lower pneumonia. Started on DuoNeb, Omnicef, bursts of steroids. Today-feeling better. Up in a chair. Oral intake is improved. Patient was seen by Dr. Burnham from earlier from pulmonary. Patient's leg the patient to be evaluated for inpatient rehab. Review of systems: Was done for constitutional, cardiovascular, GI, pulmonary. relevant finding as above Active Medications Albuterol/Ipratropium (Ipratropium-Albuterol 3 Ml Neb) 3 ml INHALATION RT-Q4H PRN PRN Reason: Shortness Of Breath Or Wheezing Albuterol/Ipratropium (Ipratropium-Albuterol 3 Ml Neb) 3 ml INHALATION RT-Q4H [facility] Last Admin: 12/05/20 19:24 Dose: 3 ml Documented by: Apixaban (Apixaban 2.5 Mg Tablet) 2.5 mg PO BID [facility] Last Admin: 12/05/20 20:40 Dose: 2.5 mg Documented by: Aripiprazole (Aripiprazole 5 Mg Tab) 5 mg PO DAILY [facility] Last Admin: 12/05/20 08:32 Dose: 5 mg Documented by: Atorvastatin Calcium (Atorvastatin 10 Mg Tab) 10 mg PO HS [facility] Last Admin: 12/05/20 20:40 Dose: 10 mg Documented by: Budesonide/Formoterol Fumarate (Symbicort 160-4.5 Mcg Inhaler) 2 puff INHALATION RT-BID [facility] Last Admin: 12/05/20 19:24 Dose: 2 puff Documented by: Cefdinir (Cefdinir 300 Mg Cap) 300 mg PO BID [facility] Last Admin: 12/05/20 20:45 Dose: 300 mg Documented by: Diltiazem HCl (Diltiazem Oral 30 Mg Tab) 30 mg PO BID [facility] Last Admin: 12/05/20 20:41 Dose: 30 mg Documented by: Guaifenesin (Guaifenesin 600 Mg Tablet.Er) 600 mg PO QID [facility] Last Admin: 12/05/20 20:40 Dose: 600 mg Documented by: Hydralazine HCl (Hydralazine Hcl 50 Mg Tab) 50 mg PO BID [facility] Last Admin: 12/05/20 20:40 Dose: 50 mg Documented by: Lorazepam (Lorazepam 0.5 Mg Tab) 0.5 mg PO BID PRN PRN Reason: Anxiety Lorazepam (Lorazepam 0.5 Mg Tab) 0.5 mg PO HS [facility] Last Admin: 12/05/20 20:40 Dose: 0.5 mg Documented by: Prednisone (Prednisone 20 Mg Tab) 20 mg PO DAILY [facility] Last Admin: 12/05/20 08:33 Dose: 20 mg Documented by: Propranolol HCl (Propranolol La 60 Mg Cap.Sa.24h) 120 mg PO BID [facility] Last Admin: 12/05/20 20:40 Dose: 120 mg Documented by: Sertraline HCl (Sertraline 100 Mg Tab) 150 mg PO DAILY [facility] Last Admin: 12/05/20 08:32 Dose: 150 mg Documented by: Past medical history to include: COPD, home oxygen 3 dose, hyperlipidemia, depression, anxiety, essential hypertension Social history: Lives with her adult son. Does use a walker. Patient ex-smoker Physical examination: VITAL SIGNS: 97.9, 70, 20, 97/62, 96% on 3 L GENERAL: BMI 42.6, reclining on a recliner EYES: Pupils equal. Conjunctiva normal. HEENT: Heart of hearing NECK: JVD not raised; masses not palpable. HEART: First and second heart sounds are normal; no edema. LUNGS:[ Respiratory rate increased, decreased breath sounds ABDOMEN: Soft, nontender, liver spleen not palpable, no masses palpable. 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 INVESTIGATIONS, reviewed in the clinical context: UA-negative December 04: Potassium 3.5 creatinine 1.02. Procalcitonin 11.8 White count 18 hemoglobin 13 platelets 375 potassium 3.7 creatinine 0.8 AST 44 ALT 71 proBNP 5170 Coronavirus [PCR]-not detected EKG tracing personally reviewed by me-atrial fibrillation rate of 83 Chest x-ray film personally reviewed by me-right basilar infiltrate 2-D echocardiogram-EF 50-55%. Basal anterior LV wall is hypokinetic. Moderate mitral regurgitation. Concentric LVH. Assessment and plan: -Acute COPD exacerbation in an ex-smoker. Patient is placed on DuoNeb, steroid, Symbicort. Pulmonary improved -Right lower lobe pneumonia, on Omnicef -Essential hypertension, patient continued on Cardizem, hydralazine, Zestril, Inderal LA -Persistent atrial fibrillation, heart rate controlled with Cardizem and Inderal LA. eliquis -Anxiety depression on Zoloft -Acute congestive heart failure exacerbation from diastolic dysfunction EF 50- 55% better. DC Lasix -Hard of hearing -Chronic hypoxic respiratory failure on home oxygen 3 L. Discussed with social worker palliative care. PTOT consulted. Being evaluated for inpatient rehab. Discussed with the patient. Continue current medications.
[2020-12-06] MEDS: IPRATROPIUM-ALBUTEROL 3 ML NEB INHALATION SCH ×5 (00:22→14:50)
[2020-12-06 02:54] VITALS: RESP 18
[2020-12-06] MEDS: SYMBICORT 160-4.5 MCG INHALER INHALATION SCH (07:26)
[2020-12-06 08:51] VITALS: BP 99/66; TEMP 98.1
[2020-12-06] MEDS: SERTRALINE 100 MG TAB PO SCH (09:14)
[2020-12-06] MEDS: hydrALAZINE HCL 50 MG TAB PO SCH (09:15)
[2020-12-06] MEDS: APIXABAN 2.5 MG TABLET PO SCH (09:15)
[2020-12-06] MEDS: PROPRANOLOL LA 60 MG CAP.SA.24H PO SCH (09:15)
[2020-12-06] MEDS: DILTIAZEM ORAL 30 MG TAB PO SCH (09:15)
[2020-12-06] MEDS: CEFDINIR 300 MG CAP PO SCH (09:15)
[2020-12-06] MEDS: guaiFENesin 600 MG TABLET.ER PO SCH ×2 (09:15→16:44)
[2020-12-06] MEDS: ARIPiprazole 5 MG TAB PO SCH (09:15)
[2020-12-06] MEDS: predniSONE 20 MG TAB PO SCH (09:15)
--- NOTE | 2020-12-06 13:37 | P.PN ---
Subjective Progress Note Date: 12/06/20 Principal diagnosis: Acute exacerbation of chronic obstructive pulmonary disease This is a 80-year-old female with history of COPD from previous heavy tobacco use, who sees Dr. May Marie is a primary. She also sees my partner, for her COPD. The patient has been recently admitted to [facility] twice, in the last couple weeks. On the first admission, she came in with COPD exacerbation, CHF, atrial fibrillation with RVR, and a urinary tract infection secondary to E. coli. On a subsequent admission, she came in again with shortness of breath, thought to be mostly related to underlying COPD. She does have chronic hypoxemic respiratory failure, and uses home O2 between 3-4 L/m, 03/05. On the ER ant here, he states that the reason she came in was for sh ortness of breath although when we are in the room seeing her, she states that her bigger problem was nausea, vomiting, and vomiting up bile. She denied any chest pain or chest discomfort. There is no fever or chills. She wasn't complaining of any genitourinary issues. Also, there are no GI issues other than what I mentioned above. I did ask the nurse taking care of her order an ultrasound of the abdomen with special attention to the right upper quadrant. The patient clinically looks about the same as she did when she was at the other hospitals. I believe she's pretty much at her baseline. She does have a history of COPD, hyperlipidemia, hypertension, recent episode of atrial fibrill ation, E. coli urinary tract infection, and left hypernephroma, status post left nephrectomy, adrenalectomy, and splenectomy. The patient also has a prior history of breast cancer, and had a left breast lumpectomy. Finally, she does have a history of cataracts. The patient is seen today 12/04/2020 in follow-up on the regular medical floor. She is currently up in the shower. Breathing a bit easier today compared to yesterday. No worsening shortness of breath, cough or congestion. Maintaining O2 saturations in the mid 90s on 3 L/m per nasal cannula. She's afebrile. Hemodynamically stable. Sputum culture is pending. Urinalysis clean. Pro- calcitonin 11.81. Abdominal ultrasound negative for acute cholecystitis. ProBNP 6280. Sodium 135. Potassium 3.5. Creatinine 1.02. She is continued on DuoNeb inhalations, Symbicort, prednisone. She remains on IV diuretics. Anticoagulated with Eliquis. The patient is seen today 12/05/2020 in follow-up on the regular medical floor. She is currently sitting up in a chair at bedside. Awake and alert in no acute distress. She is doing better today compared to yesterday. Her main complaint is that of fatigue and weakness. Short of breath with exertion. She is maintaining O2 saturations in the mid 90s on 3 L/m per nasal cannula. She's afebrile. Hemodynamically stable. Sputum culture pending. Currently on Omnicef. She is continued on DuoNeb inhalations, Symbicort, prednisone. She remains on IV diuretics. Anticoagulated with Eliquis. The patient is seen today 12/06/2020 in follow-up on the regular medical floor. Currently sitting up in a chair at the bedside. Awake and alert in no acute distress. Maintaining good O2 saturations in the 90s on 3 L/m per nasal cannula. She's been afebrile. Sputum culture reveals no growth. Pro- calcitonin down to 3.27 from 11.81. Unclear etiology. Cultures all negative. Remains on DuoNeb inhalations, Symbicort, prednisone. Empiric antibiotics in the form of Omnicef. Anticoagulated with Eliquis. Objective - Vital Signs Vital signs: Vital Signs Temp 98.1 F 12/06/20 08:00 Pulse 72 12/06/20 11:11 Resp 18 12/06/20 08:00 BP 99/66 12/06/20 08:00 Pulse Ox 97 12/06/20 08:00 Intake & Output 12/05/20 12/06/20 12/06/20 18:59 06:59 18:59 Intake Total 240 Balance 240 Intake: Oral 240 Other: # Voids 3 - Exam GENERAL EXAM: Alert, pleasant 80-year-old female patient, on 3 L nasal cannula comfortable in no apparent distress. HEAD: Normocephalic. EYES: Normal reaction of pupils, equal size. NOSE: Clear with pink turbinates. THROAT: No erythema or exudates. NECK: No masses, no JVD. CHEST: No chest wall deformity. LUNGS: Equal air entry with faint end expiratory wheeze, diminished. CVS: S1 and S2 normal with no audible murmur, regular rhythm. ABDOMEN: No hepatosplenomegaly, normal bowel sounds, no guarding or rigidity. SPINE: No scoliosis or deformity SKIN: No rashes CENTRAL NERVOUS SYSTEM: No focal deficits, tone is normal in all 4 extremities. EXTREMITIES: There is no peripheral edema. No clubbing, no cyanosis. Peripheral pulses are intact. - Labs CBC & Chem 7: 12/02/20 17:21 12/04/20 05:17 Labs: Abnormal Lab Results - Last 24 Hours (Table) 12/06/20 Range/Units 00:26 Procalcitonin 3.27 H (0.02-0.09) ng/mL Microbiology - Last 24 Hours (Table) 12/04/20 07:30 Gram Stain - Final Sputum Sputum Culture - Final Assessment and Plan Assessment: 1 Acute exacerbation of chronic obstructive pulmonary disease, and mild fluid overload. Recovered. 2 Recent admissions 2 at [facility], for COPD exacerbation, CHF exacerbation, atrial fibrillation with RVR, and E. coli urinary tract infection. 3 Acute on chronic hypoxemic respiratory failure, currently on home O2 at 3 L/m, 03/05. 4 Previous history of heavy tobacco use. 5 History of breast cancer, status post left lumpectomy. 6 Hypernephroma, left kidney, status post left nephrectomy, left adrenalectomy, and splenectomy. 7 History of hypertension. 8 History of hyperlipidemia. 9 Nausea, with biliary emesis, rule out gallbladder disease. Plan: The patient was seen and evaluated by Dr. Burnham Cleared for discharge from the pulmonary standpoint Insurance declined subacute rehab Plan is for home with home care Follow up with Dr. Palma in our office in 1-2 weeks' I, the cosigning physician, performed a [facility] & [facility] Lungs sounds with end expiratory wheeze, diminished. Maintaining good O2 saturations in the 90s on 3 L/m per nasal cannula. I discussed the assessment and plan of care with my nurse practitioner, Ashanti Singh. I attest to the above note as dictated by her.
[2020-12-06 15:02] VITALS: PULSE 76
--- NOTE | 2020-12-06 15:55 | P.DS ---
Providers Date of admission: 12/02/20 19:01 Expected date of discharge: 12/06/20 Attending physician: Kain Gibson Consults: 12/02/20 19:01 Consult Physician Routine Consulting Provider: Kelton Palma Consult Reason/Comments: COPD Do you want consulting provider notified?: Yes Primary care physician: Kelton Palma Hospital Course: Final diagnosis -Acute COPD exacerbation in an ex-smoker -Right lower lobe pneumonia, on Omnicef -Essential hypertension -Persistent atrial fibrillation, heart rate controlled -Anxiety depression -Acute congestive heart failure exacerbation from diastolic dysfunction EF 50- 55% -Hard of hearing -Chronic hypoxic respiratory failure on home oxygen 3 L. Discharge disposition Patient is being discharged in a stable condition with guarded prognosis to home. Patient will continue with home care in the outpatient setting. Patient will follow-up with Dr. Palma in the outpatient setting upon discharge. Patient will also follow-up with pulmonary in the outpatient setting. Patient to continue with short prednisone taper along with antibiotics in the form of Omnicef upon discharge. Total time taken is greater than 35 minutes. Hospital course This is a pleasant 80-year-old patient follows with Dr. Palma. Chronic stable medical conditions include hypertension, atrial fibrillation, anxiety, hypercholesterolemia essential hypertension. Patient on home oxygen 3 L. Patient for about 2 weeks of gradually becoming more and more short of breath. She had presented to [facility] at least couple of times. First occasion she was discovered to have atrial fibrillation. Also COPD has been playing a. Patient also got a cough with yellow sputum. Some fever. Appetite had decreased Wheezing. Heart of hearing. Admitted with COPD exacerbation., Right lower pneumonia. Started on DuoNeb, Omnicef, bursts of steroids. Today-feeling better. Up in a chair. Oral intake is improved. Patient was seen by Dr. Burnham from earlier from pulmonary. Patient's leg the patient to be evaluated for inpatient rehab. 12/06/2020 Patient is currently sitting up in the chair with no acute overnight issues. Patient continues to have Dyspnea with exertion and is maintained on 3 L of oxygen via nasal cannula. Patient does have a walker at the bedside. Patient was attempting ECF for continued PT/OT therapy as patient is weak although continue to show improvement during hospitalization. [id number] review was attempted with Dr. Kimble although was denied. Social work following and patient will be continuing with home care in the outpatient setting. Lives with her son who helps care for her. Patient to follow-up with primary care provider along with pulmonary in the outpatient setting. Currently no reports of chest pain, worsening shortness of breath, or palpitations. Patient is afebrile. No reports of nausea or vomiting and patient is tolerating diet. Patient will be discharged home today. Guarded p rognosis On exam vital signs are stable. Cardio S1, S2 are muffled. Respiratory system shows diminished breath sounds at the bases with no wheezing or rhonchi noted. Abdomen is soft, obese, and nontender. Nervous system shows no focal deficits. Please refer to medication reconciliation sheet for a list of medications. Patient Condition at Discharge: Stable Plan - Discharge Summary New Discharge Prescriptions: New Ipratropium-Albuterol Nebulize [Duoneb 0.5 mg-3 mg/3 ml Soln] 3 ml INHALATION RT-Q4H 30 Days #120 ml Ipratropium-Albuterol Nebulize [Duoneb 0.5 mg-3 mg/3 ml Soln] 3 ml INHALATION RT-Q4H PRN ml PRN Reason: Shortness Of Breath Or Wheezing guaiFENesin [Mucinex] 600 mg PO QID #20 tablet.er Cefdinir [Omnicef] 300 mg PO BID #10 cap predniSONE 10 mg PO DIRECTED #30 tab Budesonide-Formot 160-4.5 Mcg [Symbicort 160-4.5 Mcg Inhaler] 2 puff INHALATION RT-BID 30 Days #1 puff No Action Simvastatin [Zocor] 20 mg PO HS Fluticasone Propion/Salmeterol [Wixela 500-50 Inhub] 1 puff INHALATION RT-BID Cefuroxime Axetil [Ceftin] 500 mg PO BID Apixaban [Eliquis] 2.5 mg PO BID hydrALAZINE HCL 50 mg PO BID LORazepam [Ativan] 0.5 mg PO HS LORazepam [Ativan] 0.5 mg PO BID PRN PRN Reason: Anxiety ARIPiprazole [Abilify] 5 mg PO DAILY hydroCHLOROthiazide 25 mg PO DAILY Diltiazem Oral [Cardizem Oral] 30 mg PO BID Benazepril HCl [Lotensin] 20 mg PO DAILY Sertraline HCl [Zoloft] 150 mg PO DAILY Propranolol HCl [Inderal LA] 120 mg PO BID Discharge Medication List ARIPiprazole [Abilify] 5 mg PO DAILY 12/02/20 [History] Apixaban [Eliquis] 2.5 mg PO BID 12/02/20 [History] Benazepril HCl [Lotensin] 20 mg PO DAILY 12/02/20 [History] Cefuroxime Axetil [Ceftin] 500 mg PO BID 12/02/20 [History] Diltiazem Oral [Cardizem Oral] 30 mg PO BID 12/02/20 [History] Fluticasone Propion/Salmeterol [Wixela 500-50 Inhub] 1 puff INHALATION RT-BID 12/02/20 [History] LORazepam [Ativan] 0.5 mg PO BID PRN 12/02/20 [History] LORazepam [Ativan] 0.5 mg PO HS 12/02/20 [History] Propranolol HCl [Inderal LA] 120 mg PO BID 12/02/20 [History] Sertraline HCl [Zoloft] 150 mg PO DAILY 12/02/20 [History] Simvastatin [Zocor] 20 mg PO HS 12/02/20 [History] hydrALAZINE HCL 50 mg PO BID 12/02/20 [History] hydroCHLOROthiazide 25 mg PO DAILY 12/02/20 [History] Budesonide-Formot 160-4.5 Mcg [Symbicort 160-4.5 Mcg Inhaler] 2 puff INHALATION RT-BID 30 Days #1 puff 12/06/20 [Rx] Cefdinir [Omnicef] 300 mg PO BID #10 cap 12/06/20 [Rx] Ipratropium-Albuterol Nebulize [Duoneb 0.5 mg-3 mg/3 ml Soln] 3 ml INHALATION RT-Q4H 30 Days #120 ml 12/06/20 [Rx] Ipratropium-Albuterol Nebulize [Duoneb 0.5 mg-3 mg/3 ml Soln] 3 ml INHALATION RT-Q4H PRN ml 12/06/20 [Rx] guaiFENesin [Mucinex] 600 mg PO QID #20 tablet.er 12/06/20 [Rx] predniSONE 10 mg PO DIRECTED #30 tab 12/06/20 [Rx] Follow up Appointment(s)/Referral(s): [facility], [NON-STAFF] - [address],[place] [NON-STAFF] - As Needed (You can contact them regarding a two wheeled walker. ) Kelton Palma MD [Primary Care Provider] - 01/07/21 8:30 am Patient Instructions/Handouts: COPD (Chronic Obstructive Pulmonary Disease) (DC) Activity/Diet/Wound Care/Special Instructions: Pt would like to follow up with driving instructor Dr Liborio Deutsch with [facility] at [phone] [place] [address] [address] [place] [address] Activity Limited until follow-up Follow-up with primary care provider upon discharge Continue fluid restrictions of 1800 mL per day, low sodium, low potassium diet Continue with home care Follow-up pulmonary outpatient Discharge Disposition: HOME WITH HOME HEALTH SERVICES
== END 2020-12-06 17:32 | disposition home health service (06) | DRG 291 ==
LOC: EC 16:31 → 5NMEDONC 19:01 → 6NMEDSUR 21:08
PROVIDERS: ADMIT Hospitalist; ATTEND Hospitalist
DX: I11.0 Hypertensive heart disease with heart failure (principal); J18.9 Pneumonia, unspecified organism; J96.21 Acute and chronic respiratory failure with hypoxia; J44.1 Chronic obstructive pulmonary disease with (acute) exacerbation; I48.19 Other persistent atrial fibrillation; J44.0 Chronic obstructive pulmonary disease with (acute) lower respiratory infection; Z68.41 Body mass index [BMI] 40.0-44.9, adult; I50.33 Acute on chronic diastolic (congestive) heart failure; Z99.81 Dependence on supplemental oxygen; Z79.01 Long term (current) use of anticoagulants; Z20.822 Contact with and (suspected) exposure to COVID-19; E66.9 Obesity, unspecified; E78.00 Pure hypercholesterolemia, unspecified; F41.9 Anxiety disorder, unspecified; H91.90 Unspecified hearing loss, unspecified ear; E78.5 Hyperlipidemia, unspecified; F32.9 Major depressive disorder, single episode, unspecified; R11.2 Nausea with vomiting, unspecified; I34.0 Nonrheumatic mitral (valve) insufficiency; Z79.899 Other long term (current) drug therapy; Z98.42 Cataract extraction status, left eye; Z98.41 Cataract extraction status, right eye; Z98.890 Other specified postprocedural states; Z87.891 Personal history of nicotine dependence; Z85.3 Personal history of malignant neoplasm of breast; Z90.5 Acquired absence of kidney; Z90.81 Acquired absence of spleen; Z85.528 Personal history of other malignant neoplasm of kidney; Z87.440 Personal history of urinary (tract) infections
CPT/HCPCS: 36415; 71046; 76705; 80048; 80053; 81003; 83605; 83735; 83880; 84145; 84484; 85025; 85610; 85730; 87070; 87205; 87635; 93005; 93306; 94640; 94760; 96365; 96366; 96375; 99285